=== PATIENT | male | born 1985 | race African-American/Black ===

== ENCOUNTER 2016-10-07 04:16 | Emergency (ER) | payer MEDICAID, OTHER ==
[~2016-10-07] VITALS: Ht 162.6 cm; Wt 72.0 kg
[2016-10-07] MEDS ORDERED: ALBU8HFA IH (04:33)
[2016-10-07] MEDS ORDERED: CARISOPRODOL 350 MG TABLET PO ONE (07:15)
[2016-10-07] MEDS ORDERED: HYDROCODONE/ACETAMINOPHEN 5-325 MG TABLET PO ONE (07:15)
[2016-10-07 08:00] VITALS: BP 137/78
== END 2016-10-07 08:52 | disposition home or self-care (01) ==
LOC: EMS 04:17
DX: M62.838 Other muscle spasm (principal); F17.210 Nicotine dependence, cigarettes, uncomplicated; Z88.6 Allergy status to analgesic agent
CPT/HCPCS: 99283

== ENCOUNTER 2017-04-27 03:01 | Emergency (ER) | payer MEDICAID ==
[~2017-04-27] VITALS: Ht 162.6 cm; Wt 70.5 kg
[~2017-04-27 03:01] MED LIST: ALBU8HFA IH
[2017-04-27] MEDS ORDERED: ALBUTEROL SULFATE 5 MG/ML 20 ML NEB SOLN [BULK] NEB ONE (03:30)
[2017-04-27] MEDS ORDERED: IPRATROPIUM BROMIDE 0.5 MG/2.5 ML NEB SOLUTION NEB ONE (03:30)
[2017-04-27 04:36] VITALS: BP 136/78
== END 2017-04-27 05:02 | disposition home or self-care (01) ==
LOC: EMS 03:02
DX: J45.909 Unspecified asthma, uncomplicated (principal); J06.9 Acute upper respiratory infection, unspecified; F17.210 Nicotine dependence, cigarettes, uncomplicated; Z88.6 Allergy status to analgesic agent
CPT/HCPCS: 71010; 94060; 94644; 99285; J7611

== ENCOUNTER 2017-07-22 10:58 | Emergency (ER) | payer MEDICAID ==
[~2017-07-22] VITALS: Ht 165.1 cm; Wt 68.0 kg
[2017-07-22] MEDS ORDERED: ACETAMINOPHEN/CODEINE 300-30 MG TABLET PO ONE (11:30)
[2017-07-22 12:59] VITALS: BP 126/88
== END 2017-07-22 13:11 | disposition home or self-care (01) ==
LOC: EMS 10:59
DX: S60.221A Contusion of right hand, initial encounter (principal); J45.909 Unspecified asthma, uncomplicated; F17.210 Nicotine dependence, cigarettes, uncomplicated; Z88.6 Allergy status to analgesic agent; W01.0XXA Fall on same level from slipping, tripping and stumbling without subsequent striking against object, initial encounter; Y93.89 Activity, other specified; Y92.89 Other specified places as the place of occurrence of the external cause; Y99.8 Other external cause status
CPT/HCPCS: 99284

== ENCOUNTER 2017-08-16 08:24 | Emergency (ER) | payer MEDICAID ==
[~2017-08-16] VITALS: Ht 165.1 cm; Wt 68.2 kg
[2017-08-16 08:50] VITALS: BP 148/97
== END 2017-08-16 10:30 | disposition home or self-care (01) ==
LOC: EMS 08:24
DX: M79.641 Pain in right hand (principal); R03.0 Elevated blood-pressure reading, without diagnosis of hypertension; J45.909 Unspecified asthma, uncomplicated; Z88.6 Allergy status to analgesic agent
CPT/HCPCS: 99281; 99282

== ENCOUNTER 2017-12-18 07:10 | Emergency (ER) | payer SELFPAY ==
[~2017-12-18] VITALS: Ht 162.6 cm; Wt 68.2 kg
[2017-12-18] MEDS ORDERED: ALBUTEROL SULFATE 5 MG/ML 20 ML NEB SOLN [BULK] NEB ONE (07:45)
[2017-12-18] MEDS ORDERED: IPRATROPIUM BROMIDE 0.5 MG/2.5 ML NEB SOLUTION NEB ONE (07:45)
[2017-12-18 09:25] VITALS: BP 126/81
== END 2017-12-18 09:33 | disposition home or self-care (01) ==
LOC: EMS 07:11
DX: J45.901 Unspecified asthma with (acute) exacerbation (principal); Z88.6 Allergy status to analgesic agent
CPT/HCPCS: 94644; 99285; J7611

== ENCOUNTER 2020-09-11 20:46 | Emergency (ER) | payer MEDICAID ==
[~2020-09-11] VITALS: Ht 165.1 cm; Wt 75.0 kg
[2020-09-11] MEDS ORDERED: ALBUTEROL SULFATE 2.5 MG/0.5 ML NEB SOLUTION NEB ONE (22:30)
[2020-09-11] MEDS ORDERED: IPRATROPIUM BROMIDE 0.5 MG/2.5 ML NEB SOLUTION NEB ONE (22:30)
[2020-09-11] MEDS ORDERED: PredniSONE 20 MG TABLET PO ONE (22:30)
[2020-09-11 23:40] LABS: COVID AG,FIA SOURCE NASOPHARYNGEAL
[2020-09-12 00:17] LABS: INFLUENZA TYPE A NEGATIVE FOR TYPE A (NEGATIVE); INFLUENZA TYPE B NEGATIVE FOR TYPE B (NEGATIVE)
[2020-09-12 00:45] VITALS: BP 160/87
[2020-09-12] MEDS ORDERED: AZITHROMYCIN 500 MG TABLET PO ONE (00:45)
== END 2020-09-12 01:00 | disposition home or self-care (01) ==
LOC: EMS 20:46
DX: J18.9 Pneumonia, unspecified organism (principal); Z20.822 Contact with and (suspected) exposure to COVID-19
CPT/HCPCS: 71045; 87426; 87804; 94640; 99285; A9575; J7512; U0003; Q9967; J7613

== ENCOUNTER 2020-09-30 22:40 | Inpatient (IN) | payer MEDICAID ==
[~2020-09-30] VITALS: Ht 162.6 cm; Wt 75.5 kg
[2020-09-30 23:34] LABS: BASOPHILS % (AUTO) 1.3 % (0.0-2.0); EOSINOPHILS % (AUTO) 1.1 % (1.0-6.0); HEMATOCRIT 40.2 % (41-53); HEMOGLOBIN 14.1 g/dL (13.5-17.5); LYMPHOCYTES # (AUTO) 1.3 K/uL (1.0-4.8); LYMPHOCYTES % (AUTO) 16.7 % (22.0-44.0); MEAN CORPUSCULAR HEMOGLOBIN 28.7 pg (26.0-34.0); MEAN CORPUSCULAR HGB CONC 35.2 G/dL (31.0-37.0); MEAN CORPUSCULAR VOLUME 82 fL (80-100); MONOCYTES # (AUTO) 0.7 K/uL (0.1-1.0); MONOCYTES % (AUTO) 8.3 % (2.0-9.0); NEUTROPHILS # (AUTO) 5.7 K/uL (1.8-7.7); NEUTROPHILS % (AUTO) 72.6 % (40.0-70.0); PLATELET COUNT (AUTO) 225 K/uL (150-450); RED BLOOD CELL COUNT(AUTO) 4.93 MIL/uL (4.50-5.90); RED CELL DISTRIBUTION WIDTH 13.7 % (11.5-14.5)
[2020-09-30 23:36] LABS: COVID AG,FIA SOURCE NASOPHARYNGEAL
[2020-09-30] MEDS ORDERED: LORazepam 2 MG TABLET PO PRN (23:45)
[2020-09-30] MEDS ORDERED: ZOLPIDEM TARTRATE 10 MG TABLET PO PRN (23:45)
[2020-09-30] MEDS ORDERED: HALOPERIDOL 5 MG TABLET PO PRN (23:45)
[2020-09-30 23:50] LABS: ANION GAP 11 mmol/L (8-16); CALCIUM, TOTAL 8.3 mg/dL (8.8-10.5); CARBON DIOXIDE 25 mmol/L (22-29); CHLORIDE 102 mmol/L (98-107); CREATININE 0.99 mg/dL (0.60-1.30); GLOMERULAR FILTR. RATE CALC > 60 mL/min (>60); GLUCOSE,RANDOM 107 mg/dL (70-110); SODIUM SERUM 138 mmol/L (136-145); UREA NITROGEN, BLOOD 17 mg/dL (7-18)
[2020-09-30 23:56] LABS: ALANINE AMINOTRANSFERASE 27 U/L (12-78); ALBUMIN 3.6 g/dL (3.4-5.0); ALKALINE PHOSPHATASE 73 U/L (46-116); ASPARTATE AMINOTRANSFERASE 27 U/L (15-37); BILIRUBIN,TOTAL 0.3 mg/dL (0.1-1.0); TOTAL PROTEIN, SERUM 7.2 g/dL (6.4-8.2)
[2020-10-01 03:27] LABS: APPEARANCE,URINE CLEAR (CLEAR); BILIRUBIN,URINE NEGATIVE (NEGATIVE); GLUCOSE, URINE (UA) NEGATIVE (NEGATIVE); KETONES,URINE NEGATIVE (NEGATIVE); LEUKOCYTE ESTERASE ,URINE NEGATIVE (NEGATIVE); NITRATE,URINE NEGATIVE (NEGATIVE); OCCULT BLOOD,URINE NEGATIVE (NEGATIVE); PH,URINE 5.5 (5.0-8.0); PROTEIN,URINE NEGATIVE (NEGATIVE); UROBILINOGEN,URINE 0.2 mg/dL (<=1.0)
[2020-10-01 05:32] VITALS: BP 139/77
[2020-10-01 07:25] LABS: AMPHET/METH SCREEN,URINE NEGATIVE (NEGATIVE); BARBITURATE SCREEN, URINE NEGATIVE (NEGATIVE); BENZODIAZEPINES SCREEN,URINE NEGATIVE (NEGATIVE); CANNABINOID SCREEN,URINE NEGATIVE (NEGATIVE); COCAINE SCREEN,URINE NEGATIVE (NEGATIVE); METHADONE SCREEN, URINE NEGATIVE (NEGATIVE); OPIATE SCREEN,URINE NEGATIVE (NEGATIVE)
[2020-10-01 07:27] LABS: PHENCYCLIDINE SCREEN,URINE NEGATIVE (NEGATIVE)
[2020-10-01 08:37] VITALS: BP 141/88
[2020-10-01 09:23] LABS: CHOL/HDL RATIO 3.4 (4.2-7.3)
[2020-10-01] MEDS ORDERED: FLUO-191 PO (14:07)
[2020-10-02] MEDS ORDERED: FLUoxetine HCL 20 MG CAPSULE PO SCH (09:00)
== END 2020-10-01 15:25 | disposition home or self-care (01) | DRG 751 ==
LOC: EMS 22:40 → 3EI 23:31
PROVIDERS: ADMIT Psychiatry & Neurology Child & Adolescent Psychiatry; ATTEND Psychiatry & Neurology Child & Adolescent Psychiatry
DX: F32.2 Major depressive disorder, single episode, severe without psychotic features (principal); J45.909 Unspecified asthma, uncomplicated; F41.9 Anxiety disorder, unspecified; F12.90 Cannabis use, unspecified, uncomplicated; R45.851 Suicidal ideations; E83.51 Hypocalcemia; R10.13 Epigastric pain; Z88.8 Allergy status to other drugs, medicaments and biological substances; Z20.822 Contact with and (suspected) exposure to COVID-19
CPT/HCPCS: 87426; 99285; G0480

== ENCOUNTER 2020-11-22 12:09 | Emergency (ER) | payer MEDICAID ==
[~2020-11-22] VITALS: Ht 165.1 cm; Wt 75.0 kg
[~2020-11-22 12:09] MED LIST changes: -ALBU8HFA IH; +FLUO-191 PO
[2020-11-22 13:25] LABS: BASOPHILS % (AUTO) 0.6 % (0.0-2.0); EOSINOPHILS % (AUTO) 2.6 % (1.0-6.0); HEMATOCRIT 43.1 % (41-53); HEMOGLOBIN 14.3 g/dL (13.5-17.5); LYMPHOCYTES # (AUTO) 1.6 K/uL (1.0-4.8); LYMPHOCYTES % (AUTO) 19.9 % (22.0-44.0); MEAN CORPUSCULAR HEMOGLOBIN 28.9 pg (26.0-34.0); MEAN CORPUSCULAR HGB CONC 33.2 G/dL (31.0-37.0); MEAN CORPUSCULAR VOLUME 87 fL (80-100); MONOCYTES # (AUTO) 0.8 K/uL (0.1-1.0); NEUTROPHILS # (AUTO) 5.4 K/uL (1.8-7.7); NEUTROPHILS % (AUTO) 66.9 % (40.0-70.0); PLATELET COUNT (AUTO) 245 K/uL (150-450); RED BLOOD CELL COUNT(AUTO) 4.96 MIL/uL (4.50-5.90); RED CELL DISTRIBUTION WIDTH 14.2 % (11.5-14.5)
[2020-11-22 13:34] LABS: ANION GAP 8 mmol/L (8-16); CALCIUM, TOTAL 8.7 mg/dL (8.8-10.5); CARBON DIOXIDE 27 mmol/L (22-29); CHLORIDE 103 mmol/L (98-107); CREATININE 1.27 mg/dL (0.60-1.30); GLOMERULAR FILTR. RATE CALC > 60 mL/min (>60); GLUCOSE,RANDOM 99 mg/dL (70-110); POTASSIUM 3.9 mmol/L (3.5-5.1); SODIUM SERUM 138 mmol/L (136-145); UREA NITROGEN, BLOOD 27 mg/dL (7-18)
[2020-11-22 13:38] LABS: PROTHROMBIN TIME 10.6 SEC (9.4-11.6)
[2020-11-22 13:40] LABS: ALANINE AMINOTRANSFERASE 36 U/L (12-78); ALBUMIN 3.7 g/dL (3.4-5.0); ALKALINE PHOSPHATASE 78 U/L (46-116); ASPARTATE AMINOTRANSFERASE 45 U/L (15-37); BILIRUBIN,TOTAL 0.5 mg/dL (0.1-1.0)
[2020-11-22 13:49] LABS: B-TYPE NATRIURETIC PEPTIDE 8 pg/mL (0-100)
[2020-11-22] MEDS ORDERED: LOSA-30 PO (13:53)
[2020-11-22 15:45] LABS: AMPHET/METH SCREEN,URINE NEGATIVE (NEGATIVE); BARBITURATE SCREEN, URINE NEGATIVE (NEGATIVE); BENZODIAZEPINES SCREEN,URINE NEGATIVE (NEGATIVE); CANNABINOID SCREEN,URINE NEGATIVE (NEGATIVE); COCAINE SCREEN,URINE NEGATIVE (NEGATIVE); METHADONE SCREEN, URINE NEGATIVE (NEGATIVE); OPIATE SCREEN,URINE NEGATIVE (NEGATIVE)
[2020-11-22 15:46] LABS: PHENCYCLIDINE SCREEN,URINE NEGATIVE (NEGATIVE)
[2020-11-22 16:13] VITALS: BP 139/86
== END 2020-11-22 16:10 | disposition left against medical advice (07) ==
LOC: EMS 12:09
DX: F41.9 Anxiety disorder, unspecified (principal); R79.1 Abnormal coagulation profile; Z88.6 Allergy status to analgesic agent; Z79.899 Other long term (current) drug therapy
CPT/HCPCS: 71045; 80053; 83880; 84484; 85025; 85610; 85730; 93005; 99285; 36415-L1; 36415-TC

== ENCOUNTER 2020-12-23 21:02 | Emergency (ER) | payer MEDICAID ==
[~2020-12-23] VITALS: Ht 162.6 cm; Wt 77.3 kg
[~2020-12-23 21:02] MED LIST changes: +LOSA-30 PO
[2020-12-23 21:37] VITALS: BP 126/74
[2020-12-23] MEDS ORDERED: PredniSONE 20 MG TABLET PO ONE (22:15)
== END 2020-12-23 23:35 | disposition home or self-care (01) ==
LOC: EMS 21:02
DX: J45.901 Unspecified asthma with (acute) exacerbation (principal)
CPT/HCPCS: 99283; J7512

== ENCOUNTER 2021-08-13 17:01 | Emergency (ER) | payer MEDICAID ==
[~2021-08-13] VITALS: Ht 165.1 cm; Wt 75.0 kg
[2021-08-13 17:28] VITALS: BP 131/84
[2021-08-13] MEDS ORDERED: PredniSONE 20 MG TABLET PO ONE (18:30)
[2021-08-13] MEDS ORDERED: BENZONATATE 100 MG CAPSULE PO ONE (18:30)
[2021-08-13] MEDS ORDERED: BENZ-70 PO (18:37)
[2021-08-13] MEDS ORDERED: PRED20 PO (18:37)
[2021-08-13 19:04] LABS: COVID AG,FIA SOURCE NASOPHARYNGEAL
== END 2021-08-13 19:14 | disposition home or self-care (01) ==
LOC: EMS 17:04
DX: T78.40XA Allergy, unspecified, initial encounter (principal); U07.1 COVID-19; J45.909 Unspecified asthma, uncomplicated; I10 Essential (primary) hypertension; Z88.6 Allergy status to analgesic agent; X58.XXXA Exposure to other specified factors, initial encounter
CPT/HCPCS: 87426; 99283; J7512; U0003

== ENCOUNTER 2022-10-31 09:43 | Emergency (ER) | payer MEDICAID, OTHER ==
[~2022-10-31] VITALS: Ht 162.6 cm; Wt 77.3 kg
[~2022-10-31 09:43] MED LIST changes: +BENZ-227 PO; +FLUO-177 PO; -FLUO-191 PO; +PRED-554 PO
[2022-10-31] MEDS ORDERED: BACLOFEN 10 MG TABLET PO ONE (11:45)
[2022-10-31] MEDS ORDERED: LIDOCAINE 5% TRANSDERMAL PATCH TD ONE (11:45)
[2022-10-31 13:05] VITALS: BP 125/63
[2022-10-31] MEDS ORDERED: DIAZ5TAB5 PO (14:01)
[2022-10-31] MEDS ORDERED: LIDO700A15 TP (14:02)
== END 2022-10-31 16:00 | disposition home or self-care (01) ==
LOC: EMS 09:54
DX: M43.6 Torticollis (principal); J45.909 Unspecified asthma, uncomplicated; I10 Essential (primary) hypertension; Z88.6 Allergy status to analgesic agent; Z88.8 Allergy status to other drugs, medicaments and biological substances
CPT/HCPCS: 99283

== ENCOUNTER 2023-06-12 12:15 | Emergency (ER) | payer MEDICAID, OTHER ==
[~2023-06-12] VITALS: Ht 162.6 cm; Wt 79.5 kg
[~2023-06-12 12:15] MED LIST changes: -BENZ-227 PO; +DIAZ-328 PO; -FLUO-177 PO; +LIDO700A15 TP; -LOSA-30 PO; -PRED-554 PO
[2023-06-12 12:20] VITALS: TEMP 98.2
[2023-06-12 12:26] LABS: COVID AG,FIA SOURCE NASAL SWAB
[2023-06-12 12:57] LABS: SARS-COV2 (COVID) ANTIGEN,FIA Negative (Negative)
[2023-06-12 12:58] LABS: INFLUENZA TYPE A NEGATIVE FOR TYPE A (NEGATIVE); INFLUENZA TYPE B NEGATIVE FOR TYPE B (NEGATIVE)
[2023-06-12 13:00] LABS: BASOPHILS % (AUTO) 0.9 % (0.0-2.0); EOSINOPHILS % (AUTO) 2.5 % (1.0-6.0); HEMATOCRIT 45.9 % (41-53); HEMOGLOBIN 15.4 g/dL (13.5-17.5); LYMPHOCYTES # (AUTO) 1.5 K/uL (1.0-4.8); LYMPHOCYTES % (AUTO) 20.6 % (22.0-44.0); MEAN CORPUSCULAR HEMOGLOBIN 29.9 pg (26.0-34.0); MEAN CORPUSCULAR HGB CONC 33.6 G/dL (31.0-37.0); MEAN CORPUSCULAR VOLUME 89 fL (80-100); MONOCYTES # (AUTO) 0.8 K/uL (0.1-1.0); MONOCYTES % (AUTO) 10.6 % (2.0-9.0); NEUTROPHILS # (AUTO) 4.7 K/uL (1.8-7.7); NEUTROPHILS % (AUTO) 65.4 % (40.0-70.0); PLATELET COUNT (AUTO) 269 K/uL (150-450); RED BLOOD CELL COUNT(AUTO) 5.17 MIL/uL (4.50-5.90); RED CELL DISTRIBUTION WIDTH 14.6 % (11.5-14.5); WHITE BLOOD COUNT (AUTO) 7.3 K/uL (4.5-11.0)
[2023-06-12 13:07] LABS: ANION GAP 10 mmol/L (8-16); CARBON DIOXIDE 26 mmol/L (22-29); CHLORIDE 101 mmol/L (98-107); CREATININE 0.99 mg/dL (0.60-1.30); GLOMERULAR FILTR. RATE CALC > 60 mL/min (>60); GLUCOSE,RANDOM 91 mg/dL (70-110); POTASSIUM 3.8 mmol/L (3.5-5.1); SODIUM SERUM 137 mmol/L (136-145); UREA NITROGEN, BLOOD 13 mg/dL (7-18)
[2023-06-12 13:14] LABS: ALANINE AMINOTRANSFERASE 22 U/L (12-78); ALBUMIN 3.5 g/dL (3.4-5.0); ALKALINE PHOSPHATASE 74 U/L (46-116); ASPARTATE AMINOTRANSFERASE 21 U/L (15-37); BILIRUBIN,TOTAL 0.7 mg/dL (0.1-1.0); TOTAL PROTEIN, SERUM 7.5 g/dL (6.4-8.2)
[2023-06-12] MEDS: ALBUTEROL SULFATE 2.5 MG/0.5 ML NEB SOLUTION NEB ONE (13:42)
[2023-06-12] MEDS: IPRATROPIUM BROMIDE 0.5 MG/2.5 ML NEB SOLUTION NEB ONE (13:42)
[2023-06-12] MEDS: ALBUTEROL SULFATE HFA 90 MCG/PUFF 8 GM INHALER IH ONE (13:42)
[2023-06-12 13:45] VITALS: PULSE 87; RESP 16; O2SAT 96
[2023-06-12] MEDS ORDERED: BENZ-227 PO (13:50)
[2023-06-12 14:00] VITALS: PULSE 88; RESP 16; O2SAT 99
[2023-06-12 14:01] VITALS: PULSE 88; RESP 12; O2SAT 99
[2023-06-12] MEDS: BENZONATATE 100 MG CAPSULE PO ONE (14:15)
[2023-06-12 15:01] VITALS: BP 138/73; PULSE 107; RESP 19
== END 2023-06-12 14:53 | disposition home or self-care (01) ==
LOC: EMS 12:16
DX: B34.9 Viral infection, unspecified (principal); J45.909 Unspecified asthma, uncomplicated; I10 Essential (primary) hypertension; Z20.822 Contact with and (suspected) exposure to COVID-19
CPT/HCPCS: 99284; 71045; 87426; 80053; 85025; 87804; 36415; 94640; J3535; J7613

== ENCOUNTER 2023-07-12 14:19 | Emergency (ER) | payer MEDICAID ==
[~2023-07-12] VITALS: Ht 167.6 cm; Wt 77.3 kg
[~2023-07-12 14:19] MED LIST changes: +BENZ-227 PO
[2023-07-12 14:40] LABS: COVID AG,FIA SOURCE NASAL SWAB
[2023-07-12 15:05] LABS: SARS-COV2 (COVID) ANTIGEN,FIA Negative (Negative)
[2023-07-12 15:07] LABS: INFLUENZA TYPE A NEGATIVE FOR TYPE A (NEGATIVE); INFLUENZA TYPE B NEGATIVE FOR TYPE B (NEGATIVE)
[2023-07-12] MEDS ORDERED: BENZONATATE 100 MG CAPSULE PO ONE (16:15)
[2023-07-12] MEDS ORDERED: BENZ-227 PO (16:23)
[2023-07-12 16:45] VITALS: BP 159/111; PULSE 67; RESP 16; TEMP 98.5
== END 2023-07-12 16:54 | disposition home or self-care (01) ==
LOC: EMS 14:37
DX: J40 Bronchitis, not specified as acute or chronic (principal); I10 Essential (primary) hypertension; Z98.890 Other specified postprocedural states; Z88.6 Allergy status to analgesic agent; Z20.822 Contact with and (suspected) exposure to COVID-19
CPT/HCPCS: 71045; 87804; 99284

== ENCOUNTER 2023-09-26 21:46 | Emergency (ER) | payer MEDICAID ==
[~2023-09-26] VITALS: Ht 165.1 cm; Wt 77.3 kg
[2023-09-26 22:08] LABS: COVID AG,FIA SOURCE NASAL SWAB
[2023-09-26 22:27] LABS: INFLUENZA TYPE A NEGATIVE FOR TYPE A (NEGATIVE); INFLUENZA TYPE B NEGATIVE FOR TYPE B (NEGATIVE); SARS-COV2 (COVID) ANTIGEN,FIA Negative (Negative)
[2023-09-27] MEDS ORDERED: ALBU18HF12 IH (02:18)
[2023-09-27] MEDS ORDERED: AZIT250T9 PO (02:18)
[2023-09-27] MEDS ORDERED: PRED-554 PO (02:19)
[2023-09-27 02:29] VITALS: BP 131/89; PULSE 76; RESP 18; TEMP 99.1
== END 2023-09-27 02:37 | disposition home or self-care (01) ==
LOC: EMS 21:46
DX: J40 Bronchitis, not specified as acute or chronic (principal); I10 Essential (primary) hypertension; Z88.6 Allergy status to analgesic agent; Z20.822 Contact with and (suspected) exposure to COVID-19
CPT/HCPCS: 71045; 87804; 99284

== ENCOUNTER 2025-02-02 21:44 | Emergency (ER) | payer MEDICAID, OTHER ==
[~2025-02-02] VITALS: Ht 162.6 cm; Wt 79.0 kg
[~2025-02-02 21:44] MED LIST changes: +ALBU18HF12 IH; +LIDO-57 TP; -LIDO700A15 TP; +PRED-554 PO
[2025-02-02 21:55] VITALS: BP 137/90; PULSE 96; RESP 18; TEMP 97.8; O2SAT 100
== END 2025-02-02 22:30 | disposition left against medical advice (07) ==
LOC: EMS 21:44
DX: Z00.00 Encounter for general adult medical examination without abnormal findings (principal); Z53.21 Procedure and treatment not carried out due to patient leaving prior to being seen by health care provider